=== PATIENT | male | born 1940 | race Caucasian/White ===

== ENCOUNTER 2018-05-22 18:33 | Inpatient (IN) | payer OTHER, BC ==
[2018-05-22] MEDS ORDERED: NS 500 ML IV ONE (18:42)
[2018-05-22] MEDS ORDERED: IOPAMIDOL (ISOVUE-300) 100 ML BTL ONE (18:53)
--- NOTE | 2018-05-22 18:55 | EDPHY ---
H & P Time Seen by Provider: 05/22/18 18:42 HPI/ROS: HPI Altered mental status, frequent falls, left upper abdominal pain. 78-year-old male by [employer] flight, from [facility] which is about 2 and 0.5 hr North in [place] [facility]. Patient was seen at this clinic with complaint of left upper quadrant pain and a history of frequent falls. He lives with his . Nothing else is known about his social situation at this time. The patient reports that he has been falling frequently for some time but he does not know why. At the time of my evaluation he complains of left upper quadrant abdominal pain and left lateral lower rib pain. Chest x-ray obtained at the clinic demonstrated left-sided rib fractures in left-sided atelectasis. The patient otherwise has no other complaints. When talking to him he seems to lose focus very easily and just stared space but he is easily redirected. ROS: Constitutional: No fever, no chills. As above. Eyes: No discharge. No changes in vision. ENT: No sore throat. No nasal congestion or rhinorrhea. Respiratory: No cough. No shortness of breath. Cardiac: No chest pain, no palpitations. As above. Gastrointestinal: As above, no vomiting, no diarrhea. Genitourinary: No hematuria. No dysuria or increased frequency with urination. Musculoskeletal: No back pain. No neck pain. No myalgias or arthralgias. Skin: No rashes. Neurological: No headache. No focal weakness or altered sensation. Past medical history: Coronary artery disease with bypass surgery and multiple stents placed. He also has a history of valvular disease. He has a pacemaker. He is currently on a statin. He takes levothyroxine as well. Social history: Lives with his . Shoes but does not smoke tobacco. Denies alcohol. Denies other drugs. Physical Exam: General Appearance: Alert, he is not in distress. Loses focus easily but also redirectable. This patient is responding to questions with normal speech but it is hard to get an accurate history from him. This patient appears generally well-hydrated and well-nourished. Head: Normocephalic atraumatic. Face: Facial bones are stable on palpation. Eyes: Pupils equal and round, small at 3-2 mm bilaterally, and reactive to light, no pallor or injection. No lid erythema or edema. ENT, Mouth: Mucous membranes moist. Poor dentition. No malocclusion of the jaw. No tongue lacerations or abrasions. Pharynx is clear. The bilateral nasal canals are clear. No septal hematoma. Respiratory: There are no retractions, lungs are clear to auscultation anteriorly with good air movement bilaterally. Chest wall is stable to AP and lateral palpation. Cardiovascular: Regular rate and rhythm. No murmur appreciated. Gastrointestinal: Abdomen is soft, distended with moderately obese habitus, this is likely his baseline, he does have vague left upper quadrant tenderness on palpation extending into the left lower anterior lateral rib area, no masses , bowel sounds normal. Neurological: Motor sensory function is intact. Cranial nerves are normal. Cerebellar function intact. Skin: Warm and dry, no rashes. No lacerations, abrasions or contusions. Musculoskeletal: Neck is supple and nontender. The trachea is midline. No midline cervical, thoracic, lumbar or sacral tenderness on palpation. No flank tenderness on palpation. Extremities are symmetrical, full range of motion. All joints in the bilateral upper and bilateral lower extremities range without pain or impingement. No tenderness on palpation of the long bones in the bilateral upper and bilateral lower extremities. Psychiatric: No agitation. No depression. Database: EKG: EKG time is 6:46 p.m.: EKG shows a ventricular paced rhythm with appropriate discordance, of ventricular rate of 66. Interpreted by me. Imaging: CT head without contrast: No acute pathology. 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 Results discussed with staff radiologist Dr. Luis E Alberto. CT cervical spine without contrast: Lots of degenerative changes but no acute pathology. Results were discussed with staff radiologist Dr. Luis E Alberto. CT chest abdomen and pelvis with IV contrast: Significant for left-sided displaced rib fractures 4. Through 10 with a trace amount of pleural fluid possibly hematoma as well as atelectasis. There is also a probable nondisplaced left-sided 11th rib fracture. The CT abdomen did not show any acute pathology. Results were discussed with staff radiologist Dr. Luis E Alberto. Procedures: Emergency department course: IV was placed. Triage vital signs reviewed. He was started on IV normal saline with 500 cc to be given over the next hour. Secondary to his altered mental status as well as vague complaint of abdominal and left lower anterior chest wall pain Trauma CT imaging will be obtained. EKG obtained and reviewed by myself. 7:15 p.m., the patient's creatinine is 1.6. We are currently hydrating him with IV normal saline as above. I discussed imaging with on-call radiologist Dr. Luis E Alberto. We have agreed to use a renal protective protocol on this patient in order to obtain proper imaging. Patient will continue to be hydrated on return from CT. 8:20 p.m., patient re-evaluated. No change in mental status or neurologic status as noted above. 8:45 p.m., spoke with on-call hospitalist Dr. Whitfield. I discussed this patient' s case in detail with him. He accepts this patient for admission to the hospitalist service. Trauma surgery will consult. 8:55 p.m., spoke with on-call trauma surgeon Dr. Ankit Doherty. He will consult on trauma issues regarding this patient. The patient's remaining emergency department course under my care has been uneventful. The patient was admitted in stable condition to the hospitalist service. Differential Diagnosis: The differential diagnosis on this patient includes but is not limited to alcohol and polysubstance abuse, dementia, CVA, splenic injury, rib fractures. This represents a partial list of diagnoses considered. These considerations are based on history, physical exam, past history, reassessment and diagnostic testing. Constitutional: Initial Vital Signs Temperature (C) 36.6 C 05/22/18 18:40 Heart Rate 63 05/22/18 18:40 Respiratory Rate 20 05/22/18 18:40 Blood Pressure 133/96 H 05/22/18 18:40 O2 Sat (%) 93 05/22/18 18:40 O2 Delivery Mode Nasal Cannula O2 (L/minute) 2 Allergies/Adverse Reactions: latex Allergy (Verified 05/22/18 18:49) Home Medications: Medication Instructions Recorded Aspirin EC [Aspirin EC 81 mg (*)] 81 mg PO DAILY 05/22/18 Atorvastatin Calcium [Lipitor 20 20 mg PO HS 05/22/18 mg (*)] Bupropion HCl [Wellbutrin Xl] 300 mg PO DAILY 05/22/18 Cholecalciferol Vit D3 [Vitamin D3 6,000 mg PO DAILY 05/22/18 (*)] Gabapentin [Neurontin 300 MG (*)] 300 mg PO BID@05/22/18 Gabapentin [Neurontin 300 MG (*)] 600 mg PO HS 05/22/18 Lansoprazole [Prevacid] 30 mg PO DAILY 05/22/18 Levothyroxine [Synthroid 50 mcg 50 mcg PO DAILY06 05/22/18 (*)] Losartan Potassium 100 mg PO DAILY 05/22/18 Multivitamins [Multivitamin (*)] 1 each PO DAILY 05/22/18 Venlafaxine Xr [Effexor Xr] 150 mg PO DAILY 05/22/18 Medical Decision Making - Data Points Laboratory Results: Laboratory Results 05/22/18 18:45 05/22/18 18:45 Medications Given: Discontinued Medications Aspirin Buffered (Aspirin Ec) 81 mg PO DAILY [facility] Stop: 11/19/18 08:59 Last Admin: 05/23/18 08:38 Dose: 81 mg Bupropion HCl (Wellbutrin Xl) 300 mg PO DAILY [facility] Stop: 11/19/18 08:59 Last Admin: 05/23/18 08:38 Dose: 300 mg Cholecalciferol (Vitamin D) 6,000 units PO DAILY [facility] Stop: 11/19/18 08:59 Last Admin: 05/23/18 08:37 Dose: 6,000 units Furosemide (Lasix Injection) 20 mg IVP ONCE ONE Stop: 05/23/18 10:08 Last Admin: 05/23/18 12:01 Dose: 20 mg Gabapentin (Neurontin) 300 mg PO BID@12 [facility] Stop: 11/19/18 08:59 Last Admin: 05/23/18 12:01 Dose: 300 mg Heparin Sodium (Porcine) (Heparin Sc Injection) 5,000 unit SC Q8 [facility] Stop: 11/19/18 05:59 Last Admin: 05/23/18 13:02 Dose: Not Given Sodium Chloride (Ns) 500 mls @ 0 mls/hr IV ONCE ONE; Wide Open PRN Reason: Protocol Stop: 05/22/18 18:43 Last Admin: 05/23/18 01:33 Dose: Not Given Sodium Chloride (Ns) 1,000 mls @ 125 mls/hr IV CONT [facility] Stop: 11/18/18 23:44 Last Admin: 05/23/18 08:38 Dose: 1,000 mls Levothyroxine Sodium (Synthroid) 50 mcg PO DAILY06 [facility] Stop: 11/19/18 05:59 Last Admin: 05/23/18 05:27 Dose: 50 mcg Losartan Potassium (Cozaar) 100 mg PO DAILY [facility] Stop: 11/19/18 08:59 Last Admin: 05/23/18 08:37 Dose: 100 mg Miscellaneous Medication (Icy Hot Lidocaine/Menthol 4%/1% Patch) 1 patch TD DAILY [facility] Stop: 11/19/18 10:14 Last Admin: 05/23/18 12:01 Dose: 1 patch Multivitamins (Tab-A-Len) 1 each PO DAILY [facility] Stop: 11/19/18 08:59 Last Admin: 05/23/18 08:38 Dose: 1 each Pantoprazole Sodium (Protonix) 40 mg PO DAILY [facility] Stop: 11/19/18 08:59 Last Admin: 05/23/18 08:37 Dose: 40 mg Venlafaxine HCl (Effexor Xr) 150 mg PO DAILY [facility] Stop: 11/19/18 08:59 Last Admin: 05/23/18 08:38 Dose: 150 mg Point of Care Test Results: Chemistry 05/22/18 18:55 POC Troponin I 0.01 ng/mL ng/mL (0.00-0.08) Departure - Departure Disposition: [facility] Inpatient Acute Clinical Impression: Altered mental status, Multiple rib fractures, Fall from ground level, Renal insufficiency Condition: Fair
[2018-05-22 19:07] LABS: INR 1.01 (0.83-1.16); PROTIME(PATIENT) 13.5 SEC (12.0-15.0)
[2018-05-22 19:27] LABS: PLATELET COUNT 128 10^3/uL (150-400)
--- NOTE | 2018-05-22 19:41 | CPEKG ---
Heart Rate: 66 RR Interval: 909 P-R Interval: 164 QRSD Interval: 164 QT Interval: 468 QTC Interval: 491 P Yeso: 60 QRS Yeso: -79 T Wave Yeso: 93 EKG Severity - ABNORMAL ECG - EKG Impression: ATRIAL-SENSED VENTRICULAR-PACED RHYTHM Electronically Signed By: Varinder Baker 22-May-2018 19:42:45
--- NOTE | 2018-05-22 22:20 | GHP ---
[f rep st] PREOP HISTORY AND PHYSICAL DATE OF ADMISSION: 05/22/2018 REASON FOR CONSULTATION: Rib fractures. 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 He lives in [place]. He developed a pain in his left ribs and left upper quadrant of his abdomen. He went to the clinic [place] to be evaluated at 1 p.m. today. He states he may have fallen sometime in the last 4- 5 days. He did fracture two ribs last July when he fell. He has never had a pneumothorax. He was transfer because of chest pain, rib vs cardiac. He is not uncomfortable breathing at this point. SOCIAL HISTORY: He used to chew one tin of tobacco a week and smoke 1-2 pipes a day but never smoked cigarettes. He does not drink. ALLERGIES: He has no known drug allergies. CURRENT MEDICATIONS: Include Effexor 150 mg every morning, Wellbutrin 300 mg every morning. He takes losartan 100 mg every morning, 81 mg aspirin every morning. His Synthroid dose and his atorvastatin does which he takes at night are unknown at this point. He takes Prevacid every morning. He takes gabapentin 300 mg twice a day and 600 mg at bedtime. He takes 6000 units of vitamin D every morning and multivitamin every morning. PAST SURGICAL HISTORY: Includes pacemaker placement. He has had an umbilical hernia repair. He has had a colon resection for diverticulitis. He had an aortic bovine valve placement and coronary artery bypass grafting x3. He has had ORIF/plate placement for fracture of C1. He has had a right knee replacement. He has had different settings, a left inguinal hernia repair and a right inguinal hernia repair. He has had an appendectomy and a tonsillectomy. He has had cataract extraction with intraocular lens placement. He is going to have all his teeth pulled on Sunday in preparation for dentures. He has had rhinoplasty. There is no history of rheumatic fever, tuberculosis, hepatitis, or transfusions. REVIEW OF SYSTEMS: He has been hypertensive for 20 years. He had a heart attack 3 years ago. He has decreased hearing. He does were glasses. He has Lise's thyroiditis. He had asthma as a child. He does not take any steroids. There are no limits on his activities, but he cannot run because of his artificial knee. PHYSICAL EXAMINATION: GENERAL: He is awake and alert and quite pleasant. NEUROLOGIC: He is oriented to person, place, and time. There are no focal lateralizing neurologic findings. There are no raccoon eyes or Irene sign. NECK: There is no appreciable thyroid enlargement. There is no cervical, supraclavicular, axillary, or inguinal lymphadenopathy. UPPER EXTREMITIES: Unremarkable. BACK: Unremarkable. LUNGS: Clear to auscultation. His chest is stable and non-painfull to both AP and lateral compression. CARDIAC: Shows S1, S2 to be normal. I do not appreciate any murmurs, regurgitation, or otherwise. ABDOMEN: Distended and generous. The pain that took him to [facility] is in his anterior axillary line, approximately 3 fingerbreadths below the rib cage. His pelvis is stable to AP and lateral compression. He has normoactive bowel sounds. LOWER EXTREMITIES: Unremarkable. IMPRESSION: Patient with known left rib fractures 4 through 10 (mildly displaced) and nondisplaced 11th rib fracture but age is indeterminate. His white blood cell count is 7.8. His platelets are 128,000. His hematocrit is 47. His INR is 1.01. His creatinine is 1.6. His TSH is 1.89. IMPRESSION: Patient multiple rib fractures, which are nontender to anteroposterior and lateral compression. I have to suspect his rib fractures are in fact old. Nothing further to add at this point. Thank you for asking me to share in his care. /[id number]/MODL MTDD
--- NOTE | 2018-05-22 23:23 | PDGENHP ---
History and Physical History and Physical: CC: Left-sided abdominal pain x2 days HISTORY: It should be noted that this patient does have some history of impairment related to an old stroke, bipolar disease, and from what I am told from the ER staff possibly some memory abnormalities. Therefore his history may be somewhat suspect due to these issues, and notably history that I get does not entirely match the history that the ER physician here obtain from the patient. This patient was life flighted from the [facility] in [place] today to our emergency room. He tells me that he originally presented to a medical center in [place] today, while he was there on a fishing trip, due to left abdominal pain for 2 days. He does not remember anything that he did over that happened that would have caused this abdominal pain to begin, however he notes that this abdominal pain is mainly present and certainly much worse whenever he twists, rolls over in bed, tries to sit up, or makes other movements. He feels that it is a stranger injured abdominal wall muscle any points to 1 very specific location in the abdominal wall on the left upper area a few cm below the costal margin. 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 He denies any nausea vomiting decreased appetite, pain with eating or drinking, change in bowel function, fevers, urinary symptoms. He does not use any alcohol and has no prior history of pancreatitis. Is not entirely clear to me why the patient was flown by helicopter from the [facility] in [place], nor why he was flown to our hospital as he lives in [place]. From reading the records that are available to me at the [facility] it appears they may have been concerned that he had an acute pneumonia though the patient has not had here or nor presented to them with their any cough chest discomfort shortness of breath or fever symptoms. Apparently his is driving from [place] to this hospital at this time. I may not have complete records from them but I do not see any evidence that they did a chest x-ray or other chest imaging. The patient appeared to be in stable condition at the other [facility], with stable vital signs, no fever, stable cardiac rhythm, no complaint of any kind of acute chest pain or breathing abnormalities. He was noted to have some hypoxemia at that altitude but does have a chronic history of heart and lung issues. Our emergency staff here did not get specific information that detailed to them what the exact reasoning was 4 and a helicopter transport for this patient. I do know that a cardiac troponin had been measured at the other Medical Center and was negative , and we did receive some Cardiac telemetry tracings but no 12 lead EKG from the other Medical Center that I can see in the paperwork given to me. The patient himself is not sure what the reason for his helicopter transport was Notably the patient does fall quite frequently and this is been going on every since he had a stroke some years ago. He still has some left-sided weakness related to that stroke. He says his last fall was 4 days ago and he did not have any injury at that time. He tells me that he falls as often as every other day. He uses some kind of walking staff as he calls it but does not use a walker. He says he has been falling every other day for at least 6 months on average. He does not feel like he has any new worsening of his gait disorder or balance issues, no new neurologic symptoms no new weakness nothing stroke- like, no fevers or headache or change in vision. The patient did injure several ribs on the left side last July with 1 of his falls. He does not have any residual pain from that injury. ROS: A comprehensive 10 system review revealed no other significant acute findings PAST MEDICAL HISTORY: Gait instability with frequent falls, prior history of multiple left rib fractures and right forearm fractures Coronary artery disease with 3 bypasses; he states this was complicated by aspiration pneumonia and a 6 week stay in the hospital, and he did require a surgically placed feeding tube at that time Aortic valve replacement Chronic atrial fibrillation Bipolar disorder Stroke Depression Pacemaker Hyperlipidemia Hypertension Hypogonadism Hypothyroid Appendectomy Cervical spine injury leading to cervical spine fusion surgery at C3 and 4 Colectomy, unknown what the cause of that was to me at this time FAMILY MEDICAL HISTORY: Heart failure Alcohol abuse Prostate cancer in a brother SOCIAL HISTORY: lives with his Was on a fishing trip in [place] the last several days No current tobacco No alcohol use MEDICATIONS: The patients list has been reconciled by our clinical pharmacist in the EMR. I have reviewed the list and ordered appropriate medicines. PHYSICAL EXAMINATION: Vital Signs: Some mild hypertension here at this time Otherwise stable vitals without fever; in our ER he has been breathing 2 L nasal cannula with saturations of 98% but there were no recorded saturations off of oxygen Acid Patroller: Sinus rhythm with ventricular pacing and concordant QRS changes from the pacer Examination: General: alert, oriented to [facility] and having come from the [facility], day of week, year, person, relaxed lying on gurney Neurologic: Some memory deficit is noted be actually does fairly well overall, normal speech/language, 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 no current facial asymmetry, mild left-sided weakness in the limbs compared to the right Skin: warm, dry, good color, no rash HEENT: normal Neck: no mass or jvd Resps: relaxed Lungs: clear breath sounds on right, slightly coarse and diminished on left Heart: regular, no murmur; has median sternotomy scar well healed and a chest tube scar well healed from his bypass surgery Abdomen: soft, nondistended, there is an area of mild tenderness to palpation in the left abdominal wall a few cm above the umbilicus and below the costal margin with no guarding or rebound and no palpable abnormality in that area. This location does correspond to wear the patient's subjective experience of his presenting pain is. There is no discoloration of the skin in this area no signs of inflammation, no crepitus. No hernia. Bowel sounds are present and normal. There is an all well-healed scar from his feeding tube from prior surgery Upper Extremities: normal Lower Extremities: Trace edema below the knees, warm No Bleeding or bruising IV site: looks normal LABORATORY DATA: Blood testing was done at the [facility] as well as urine testing and have some of the results of these. A D-dimer was measured at 420 with a reference range of 399. Troponin was in the normal range. Urinalysis was a little bit concentrated at 1.025 specific gravity but otherwise unremarkable. Here he has a normal CBC, creatinine 1.6 with no old comparison values available , otherwise normal basic met panel. He does have another normal troponin here at this time as well as a normal TSH. A urinalysis is repeated here and is unremarkable, as well as a urine drug screen which is negative and serum alcohol level undetectable. RADIOLOGY STUDIES: Here he has had CT scan images of the head neck chest and abdomen I reviewed the images from the studies. On the abdominal study, I see no abnormalities in the abdominal wall save for the scars from his previous surgeries as noted above. There is no abnormality of the intra-abdominal fat with the intra-abdominal organs particularly in the area of tenderness in the upper mid left abdomen. The radiologist has found no specific abnormalities on the abdominal study. On the chest study, I can see the evidence of his old left -sided rib fractures and these do appear old, though with nonunion. Again these were nontender on examination. The patient does have what appears to be possibly some small left-sided pleural effusion with some atelectasis adjacent, but there is no pulmonary infiltrate or anything that looks like a pneumonia. Evidence of his old Cardiac surgery. On the head and neck studies I see evidence of his prior cervical spine fusion and an old stroke, but nothing that appears acute. 12 LEAD EKG: I have 2 monitor tracing pages from the [facility] today both showing a sinus rhythm with ventricular pacing and resultant EKG changes from the pacer. I have an old EKG from September at [facility] showing again a sinus rhythm with ventricular pacing. EKG done in our ER here [facility] shows again sinus rhythm with ventricular pacing ASSESSMENT: * abdominal wall pain and tenderness of uncertain etiology but without any evidence of infectious or inflammatory illness, ischemic or other vascular or thromboembolic abnormality, dysfunction of any internal organs, or any other real concerning abnormalities * dehydration is suggested by concentrated urine at the other [facility] as well as what appears to likely be some acute kidney injury with creatinine 1.6, though with no baseline renal function available tonight/ * known chronic severe gait instability with very frequent falls, past injuries , and patient not really taking adequate measures to prevent falls, however no evidence of acute injury at this time with last fall 45 days ago * old L rib fractures from previous fall July 2017, currently painless but nonunioned. Are CT scan does show some pleural fluid which may be new or old but there is no pneumonia which it sounds like the [facility] suspected; he does not have a clinical syndrome consistent with pneumonia at this time * due to the patient's inability to give entirely consistent history at all times here [facility], and the uncertainty of exactly why he was transported here by helicopter, he was initially assessed in the ER as a possible trauma patient and had multiple imaging studies which have not shown any evidence of any acute trauma other than possibly abdominal wall pain as described above. Dr. Doherty from Trauma surgery has seen the patient and does not find evidence of acute injury at this time. * multiple other illnesses that all appear chronic and stable at this time include gait instability from an old stroke with frequent falls, heart disease, spine disease, cerebrovascular disease with chronic left-sided weakness, bipolar disorder, and others. PLANS: * Inpatient admission to the hospital as I do not think it will likely be safe to have this patient going home over the next 48 hr given his severe gait instability, falls, history of injuries, and the interference of his stroke and dementia on his awareness of his safety issues * Continue hydration; we are already seeing that his urine specific gravity is better as he arrives here from prior hydration, but will need to follow his renal function closely for improvement and trying get a baseline value for that * Fall risk precautions * PT and OT consult * Follow and manage his abdominal wall pain expectantly at this time; no nonsteroidal anti-inflammatory meds due to his renal issue * DVT prophylaxis * Trying get further history from his when she arrives here for clarification I have reviewed the patient's case in detail with Dr. Varinder Baker I have reviewed the patient's past medical records as part of this assessment, including records sent from the [facility] and the EKG from [facility].
[2018-05-22] MEDS ORDERED: ZOLPIDEM TARTRATE 5 MG TAB PO PRN (23:44)
[2018-05-22] MEDS ORDERED: ONDANSETRON 4 MG/2 ML VIAL IVP PRN (23:44)
[2018-05-23] MEDS: NS 1,000 ML IV SCH ×2 (00:40→08:38)
[2018-05-23] MEDS: HEPARIN 5,000 UNIT/0.5 ML INJ SC SCH ×2 (05:28→13:02)
[2018-05-23] MEDS ORDERED: LEVOTHYROXINE 50 MCG TAB PO SCH (06:00)
[2018-05-23] MEDS: GABAPENTIN 300 MG CAP PO SCH ×2 (08:38→12:01)
[2018-05-23] MEDS ORDERED: MULTIVITAMINS 1 EACH TAB PO SCH (09:00)
[2018-05-23] MEDS ORDERED: LOSARTAN POTASSIUM 50 MG TAB PO SCH (09:00)
[2018-05-23] MEDS ORDERED: PANTOPRAZOLE SODIUM 40 MG TAB PO SCH (09:00)
[2018-05-23] MEDS ORDERED: buPROPion XL 150 MG TAB PO SCH (09:00)
[2018-05-23] MEDS ORDERED: VENLAFAXINE XR 150 MG CAP PO SCH (09:00)
[2018-05-23] MEDS ORDERED: ASPIRIN EC 81 MG TAB PO SCH (09:00)
[2018-05-23] MEDS ORDERED: CHOLECALCIFEROL VIT D3 2,000 UNITS TAB/CAP PO SCH (09:00)
--- NOTE | 2018-05-23 09:53 | PDMN ---
Medical Necessity Medical necessity: Pt meets INPT criteria per MD as of 05/22/18 and MCG Systemic or Infectious Condition GRG (abdominal wall pain and tenderness, dehydration with creatinine 1.6, req IVF 125/hr, old rib fractures but nonunioned. Severe gait instability, frequent falls, history of injuries, interference of his stroke and dementia on his awareness of safety issues - unlikely to be safe to discharge home over the next 48 hrs. Comorbid CAD/CABG, AVR, chronic afib, cervical spine injury leading to cervical spine fusion.
[2018-05-23] MEDS ORDERED: FUROSEMIDE 20 MG/2 ML VIAL IVP ONE (10:07)
[2018-05-23] MEDS ORDERED: LIDOCAINE 4%/MENTHOL 1% PATCH TD SCH (10:15)
[2018-05-23 12:09] VITALS: BP 117/66
--- NOTE | 2018-05-23 13:53 | GDS ---
[f rep st] DISCHARGE SUMMARY DISCHARGE DIAGNOSES: 1. Left abdominal pain. 2. Dehydration. 3. Chronic rib fractures. CONSULTATIONS: Dr. Doherty of trauma. STUDIES AND PROCEDURES DONE: 1. CT of the head. 2. CT of the chest. 3. CT of the cervical spine. 4. CT of the abdomen. PHYSICAL EXAM: GENERAL: The patient is alert. VITAL SIGNS: Afebrile at 36.5, pulse is 70, respira tory rate 16, blood pressure is 117/66, saturating 90% on room air. I have seen and evaluated the juan luz on the day of discharge. HOSPITAL COURSE: The patient is an 78-year-old male who was fishing in [place] at which time he was h aving some left-sided abdominal pain. Presented to the clinic there, and after some evaluation the nohemi morris medevaced the patient to [facility]. I am seeing him during this hospitalizati on. 1. Left-sided abdominal pain. This is significantly improved prior to disposition. Anticipate that this is secondary to the patient's pleural effusion. He states that his pain is present only when m oving. I have offered the patient further evaluation with a V/Q scan or other studies to rule out pu lmonary emboli. He and his both are refusing any of the studies at this time. I have expressed that this is a concern and cannot be removed from the differential until further evaluation is done. They do both understand this and do not feel that it is appropriate for him to have any further willian dy or evaluation. Lidoderm patch has been ordered. The patient received a small dose of Lasix. He will follow up with his primary care physician in 1 day. 2. Chronic left-sided rib fractures. These have been present for some time. The patient does have a small pleural effusion on that side. He has no evidence of any cardiac involvement. 3. Dehydration. The patient was fishing in the [place]. He has been hydrated and stable. 4. Chronic kidney disease. He returned to his baseline creatinine prior to disposition; 1.1. DISPOSITION: The patient will be discharged home with home health care. He has been evaluated by Ph ysical Therapy as well as Occupational Therapy prior to his discharge. It is felt that he is safe an d close to baseline at the time of disposition. I reviewed the patient's care with his nurse as well as the case operator. I spent greater than 35 minutes in the care, coordination, and management of t his patient's disposition. DISCHARGE MEDICATIONS: Please refer to EMR form. I have not adjusted the patient's previously presc ribed home medications to the best of my knowledge. Followup will be with the patient's primary care physician on 05/24/2018. /[id number]/MODL
--- NOTE | 2018-05-23 14:45 | ASMTCASEMG ---
Living Arrangements What is your living Answers: With Spouse arrangement? Who do you live with? Type Of Residence What kind of residence do Answers: House you live in? Discharge Plan Comments Coordination Status Comments Notes: CM spoke to Thalia Easley NP regarding d/c POC. Pt is being discharged today. Therapies are recommending HC. CM met w/ pt and for dispo planning. Pt and are refusing HC at this time. CM available for changes. Plan: Independent Date Signed: 05/23/2018 02:44 PM Electronically Signed By:LONNIE Estrada
--- NOTE | 2018-05-23 14:45 | ASMTLACE ---
SWEETIE Length of stay for Answers: 1 day current admission Acuity / Level of Answers: Yes Care: Did the patient have an inpatient admission? Comorbidities - select Answers: Cerebrovascular disease all that apply (CVA, TIA, aneurysms, vasc ular dementia) Coronary Artery Disease History of falls Other Notes: Valvular disease; Pacemaker; HTN # of Emergency department Answers: 1-2 visits in the last 6 months Social determinants Answers: Mental health diagnosis (anxiety, depression, pers onality disorders, etc.) Score: 15 Date Signed: 05/23/2018 02:45 PM Electronically Signed By:LONNIE Estrada
[2018-05-23] MEDS ORDERED: ATORVASTATIN CALCIUM 20 MG TAB PO SCH (21:00)
[2018-05-23] MEDS ORDERED: PATCH REMOVAL 1 EA PATCH TD SCH (21:00)
[2018-05-23] MEDS ORDERED: GABAPENTIN 300 MG CAP PO SCH (21:00)
== END 2018-05-23 14:54 | disposition home or self-care (01) | DRG 187 ==
LOC: F3E 22:29
PROVIDERS: ADMIT Internal Medicine; ATTEND Internal Medicine
DX: J90 Pleural effusion, not elsewhere classified (principal); I69.354 Hemiplegia and hemiparesis following cerebral infarction affecting left non-dominant side; M84.48XA Pathological fracture, other site, initial encounter for fracture; E86.0 Dehydration; R29.6 Repeated falls; R26.9 Unspecified abnormalities of gait and mobility; I12.9 Hypertensive chronic kidney disease with stage 1 through stage 4 chronic kidney disease, or unspecified chronic kidney disease; N18.9 Chronic kidney disease, unspecified; F31.9 Bipolar disorder, unspecified; I25.10 Atherosclerotic heart disease of native coronary artery without angina pectoris; Z95.1 Presence of aortocoronary bypass graft; E78.5 Hyperlipidemia, unspecified; E03.9 Hypothyroidism, unspecified; Z95.0 Presence of cardiac pacemaker
CPT/HCPCS: 80305; 84484-PO; 97116-GP; 97162-GP; 97166-GO; 97535-GO; G0480; G8978-GP-CJ; G8979-GP-CI; G8987-GO-CI; G8988-GO-CI; J1644; J1940; Q9967